=== PATIENT | female | born 1990 | race Two or more races ===

== ENCOUNTER → 2021-07-18 | Outpatient (CLI) | payer OTHER | END | disposition home or self-care (01) | LOC: PRENATAL 14:30 | PROVIDERS: ATTEND Obstetrics & Gynecology Maternal & Fetal Medicine | DX: Z36.89 Encounter for other specified antenatal screening (principal); O36.80X1 Pregnancy with inconclusive fetal viability, fetus 1; Z3A.13 13 weeks gestation of pregnancy ==

== ENCOUNTER 2021-09-12 07:54 | Outpatient (CLI) | payer OTHER | END 2021-09-12 09:11 | disposition home or self-care (01) | LOC: PRENATAL 07:54 | PROVIDERS: ATTEND Obstetrics & Gynecology Maternal & Fetal Medicine | DX: O35.0XX0 Maternal care for (suspected) central nervous system malformation in fetus, not applicable or unspecified (principal); O35.3XX0 Maternal care for (suspected) damage to fetus from viral disease in mother, not applicable or unspecified ==

== ENCOUNTER 2021-12-05 08:47 | Outpatient (CLI) | payer OTHER | END 2021-12-05 10:45 | disposition home or self-care (01) | LOC: PRENATAL 08:47 | PROVIDERS: ATTEND Obstetrics & Gynecology Maternal & Fetal Medicine | DX: O26.849 Uterine size-date discrepancy, unspecified trimester (principal); O36.8199 Decreased fetal movements, unspecified trimester, other fetus; O36.60X0 Maternal care for excessive fetal growth, unspecified trimester, not applicable or unspecified; Z3A.32 32 weeks gestation of pregnancy ==

== ENCOUNTER 2021-12-30 14:30 | Inpatient (IN) | payer OTHER ==
[~2021-12-30] VITALS: Ht 175.3 cm; Wt 70.8 kg
[2022-01-11] MEDS ORDERED: PRENATAL TABLE1 EAC3 PO (23:14)
[2022-01-11] MEDS ORDERED: IRON236 MG PO (23:15)
== END 2022-01-14 16:48 | disposition home or self-care (01) | DRG 807 ==
LOC: LDR 01-11 23:06 → SURG-SUITE 01-13 14:45 → LDR 01-27 14:30
PROVIDERS: ADMIT Obstetrics & Gynecology; ATTEND Obstetrics & Gynecology
PROC: 10E0XZZ Delivery of Products of Conception, External Approach (ICD-10-PCS; principal; 2022-01-12)
PROC: 0KQM0ZZ Repair Perineum Muscle, Open Approach (ICD-10-PCS; 2022-01-12)
PROC: 0W8NXZZ Division of Female Perineum, External Approach (ICD-10-PCS; 2022-01-12)
PROC: 4A1HXFZ Monitoring of Products of Conception, Cardiac Rhythm, External Approach (ICD-10-PCS; 2022-01-12)
DX: O70.1 Second degree perineal laceration during delivery (principal); Z37.0 Single live birth; O33.5XX0 Maternal care for disproportion due to unusually large fetus, not applicable or unspecified; Z3A.37 37 weeks gestation of pregnancy